=== PATIENT | male | born 1955 | race Caucasian/White ===

== ENCOUNTER 2020-12-01 13:58 | Outpatient (CLI) | payer BC | END 2020-12-01 13:59 | disposition critical access hospital (66) | LOC: EMS 13:58 | DX: R55 Syncope and collapse (principal); R11.2 Nausea with vomiting, unspecified | CPT/HCPCS: A0425; A0427 ==

== ENCOUNTER 2020-12-01 14:09 | Emergency (ER) | payer BC ==
[2020-12-01] MEDS ORDERED: SODIUM CHLORIDE 0.9% 1,000 ML IV STA (14:20)
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
[2020-12-01] MEDS ORDERED: METOCLOPRAMIDE 10 MG/2 ML VIAL IVP STA (14:30)
[2020-12-01 14:41] LABS: BASOPHILS # (AUTO) 0.1 10^3/uL (0.0-0.1); BASOPHILS % (AUTO) 0.9 %; EOSINOPHILS # (AUTO) 0.1 10^3/uL (0.0-0.7); HGB - HEMOGLOBIN 13.1 g/dL (14.0-18.0); LYMPHOCYTES # (AUTO) 2.2 10^3/uL (1.5-3.5); LYMPHOCYTES % (AUTO) 27.3 %; MEAN CORPUSCULAR HEMOGLOBIN 30.8 pg (27.0-31.0); MEAN CORPUSCULAR HGB CONC 33.6 g/dL (32.0-36.0); MEAN CORPUSCULAR VOLUME 91.5 fL (80.0-94.0); MONOCYTES # (AUTO) 0.8 10^3/uL (0.0-1.0); NEUTROPHILS # (AUTO) 4.9 10^3/uL (1.5-6.6); NEUTROPHILS % (AUTO) 60.7 %; PLT - PLATELET COUNT 225 10^3/uL (130-450); RED BLOOD COUNT 4.26 10^6/uL (4.70-6.10); RED CELL DISTRIBUTION WIDTH 12.9 % (12.0-15.0)
[2020-12-01 14:56] LABS: ALBUMIN/GLOBULIN RATIO 1.7 (1.0-2.2); CALCIUM 8.8 mg/dL (8.5-10.3); MAGNESIUM 1.9 mg/dL (1.7-2.8); POTASSIUM 3.1 mmol/L (3.5-5.0); TOTAL PROTEIN 6.4 g/dL (6.7-8.2)
--- NOTE | 2020-12-01 14:56 | XRAY Report ---
PROCEDURE: Chest 1 View X-Ray INDICATIONS: syncope TECHNIQUE: One view of the chest was acquired. COMPARISON: None FINDINGS: Surgical changes and devices: None. Lungs and pleura: No pleural effusions or pneumothorax. Lungs are clear. Mediastinum: Mediastinal contours appear normal. Heart size is normal. Bones and chest wall: No suspicious bony lesions. Overlying soft tissues appear unremarkable. IMPRESSION: No acute cardiopulmonary abnormality. Reviewed by: Juice Greer on 12/01/2020 1:55 PM MANAV Approved by: Juice Greer on 12/01/2020 1:55 PM AKYU Station ID: [id number]
[2020-12-01 15:36] VITALS: BP 103/66
== END 2020-12-01 16:13 | disposition home or self-care (01) ==
LOC: ED 14:09
DX: Q23.1 Congenital insufficiency of aortic valve (principal); D64.9 Anemia, unspecified; E87.6 Hypokalemia
CPT/HCPCS: 36415; 71045; 80053; 83735; 83880; 84484; 85025; 93005; 96361; 96374; 99283; 99284; J2765